=== PATIENT | male | born 1995 | race Caucasian/White ===

== ENCOUNTER → 2016-11-03 | Outpatient (CLI) | payer BC ==
--- NOTE | 2016-11-03 15:29 | MAMMOGRAPHY REPORT ---
MALE BILATERAL DIGITAL DIAGNOSTIC MAMMOGRAM TOMOSYNTHESIS WITH CAD AND TARGETED BILATERAL ULTRASOUND : 11/03/2016 CLINICAL HISTORY: Palpable lump right breast. TECHNIQUE: Bilateral breast tomosynthesis in addition to standard 2D mammography was performed. Curr ent study was also evaluated with a Computer Aided Detection (CAD) system. COMPARISON: No prior exams were available for comparison. BREAST COMPOSITION: The breast parenchyma is nearly entirely fat. FINDINGS: A triangle skin palpable marker overlies the 12:00 periareolar right breast. There is gl andular tissue in the subareolar right breast, near the area of palpable concern. No evidence of a suspicious mass, focal area of architectural distortion or suspicious microcalcifications bilaterall y. Targeted ultrasound was performed in the area of palpable concern pointed out by the patient (retroa reolar right breast), and also in the left retroareolar breast for comparison purposes. There is a hypoechoic amount of breast tissue development in the retroareolar and periareolar right breast. No glandular tissue is seen in the left retroareolar breast. These findings are compatible with gynec omastia. IMPRESSION: ACR BI-RADS CATEGORY 2: BENIGN, TARGETED ULTRASOUND ACR BI-RADS CATEGORY 2: BENIGN There is right gynecomastia correlating with the palpable lump identified by the patient. No mammog raphic or targeted sonographic evidence of malignancy. Clinical follow-up is recommended as to poss ible underlying cause. These results and recommendations were discussed with the patient at the time of the exam. Approximately 10% of breast cancers are not detected with mammography. A negative mammographic repor t should not delay biopsy if a clinically suggestive mass is present. Leonela Argueta M.D. ay/:11/03/2016 11:15:35 College Advisor: Johanny TOVAR(Max)(Bro), [facility] letter sent: Normal 1/2 BI-RADS Code: ACR BI-RADS Category 2: Benign Ultrasound BI-RADS: ACR BI-RADS Category 2: Benign
== END | disposition home or self-care (01) ==
LOC: C.MAMM 10:51
PROVIDERS: ATTEND Physician Assistant Medical
DX: N63 Unspecified lump in breast (principal)